=== PATIENT | female | born 1975 | race American Indian/Alaskan Native ===

== ENCOUNTER 2016-06-11 13:13 | Emergency (ER) | payer OTHER ==
[2016-06-11 13:55] VITALS: BP 124/80
--- NOTE | 2016-06-11 14:10 | Emergency Department Report ---
Entered by NAGI BUENO, acting as scribe for HELLEN GOULD NP. Chief Complaint: Extremity Injury, Lower Stated Complaint: LEFT HIP PAIN Time Seen by Provider: 06/11/16 13:53 - HPI History of Present Illness: 40 y/o female presents with 6/10, sharp, left hip pain that started 3 days ago as a result of her bursitis. Pain is aggravated by movement, alleviated by sitting. Pt notes taking ibuprofen with relief. LMP 05/29/16. NAD VSS no focal or neuro deficits ambulatory - ROS Review of Systems: as noted in HPI - Exam Vital Signs: Vital Signs 06/11/16 13:51 Temperature 98 F Pulse Rate 78 Respiratory 20 Rate Blood Pressure 124/80 O2 Sat by Pulse 97 Oximetry Physical Exam: as noted in HPI MSE screening note: Focused history and physical exam performed. Due to findings the following was ordered: ED Disposition for MSE Condition: Stable This documentation as recorded by the scribe,NAGI BUENO,accurately reflects the service I personally performed and the decisions made by me,HELLEN GOULD NP.
--- NOTE | 2016-06-11 17:15 | Emergency Department Report ---
ED Extremity Problem HPI - General Chief complaint: Extremity Injury, Lower Stated complaint: LEFT HIP PAIN Time Seen by Provider: 06/11/16 16:35 Source: patient, family Mode of arrival: Ambulatory Limitations: No Limitations - History of Present Illness MD Complaint: joint paint Location: left, lower extremity History of Same: Yes -: Yes arthralgia, No fever, No associated dyspnea, No associated chest pain Radiation: none Severity scale (0 -10): 6 Quality: aching Consistency: constant Improves with: cold therapy Worsens with: weight bearing, walking Associated Symptoms: denies other symptoms - Related Data Previous Rx's Medication Instructions Recorded Last Taken Type Naproxen [Naprosyn TAB] 500 mg PO BID PRN #12 tablet 06/11/16 Unknown Rx Allergies Allergy/AdvReac Type Severity Reaction Status Date / Time No Known Allergies Allergy Unverified 06/11/16 17:16 ED Review of Systems ROS: Stated complaint: LEFT HIP PAIN Other details as noted in HPI Comment: All other systems reviewed and negative Constitutional: denies: chills, fever ENT: denies: ear pain, throat pain Respiratory: no symptoms reported Cardiovascular: denies: chest pain, palpitations, edema, syncope Gastrointestinal: denies: abdominal pain, nausea, vomiting, diarrhea, constipation Musculoskeletal: arthralgia. denies: back pain, joint swelling, myalgia Skin: denies: rash Neurological: denies: headache, numbness, paresthesias, confusion, abnormal gait , vertigo ED Past Medical Hx - Past Medical History Previous Medical History?: Yes Additional medical history: Bursitis - Surgical History Past Surgical History?: No - Family History Family history: hypertension - Social History Smoking Status: Never Smoker Substance Use Type: None - Medications Home Medications: Home Medications Medication Instructions Recorded Confirmed Last Taken Type Naproxen [Naprosyn TAB] 500 mg PO BID PRN #12 tablet 06/11/16 Unknown Rx ED Physical Exam - General Limitations: No Limitations General appearance: alert, in no apparent distress - Head Head exam: Present: atraumatic, normocephalic, normal inspection - Eye Eye exam: Present: normal appearance, PERRL, EOMI. Absent: periorbital swelling , periorbital tenderness Pupils: Present: normal accommodation - Neck Neck exam: Present: normal inspection, full ROM. Absent: tenderness, lymphadenopathy - Respiratory Respiratory exam: Present: normal lung sounds bilaterally. Absent: respiratory distress, chest wall tenderness - Cardiovascular Cardiovascular Exam: Present: regular rate, normal rhythm, normal heart sounds - GI/Abdominal GI/Abdominal exam: Present: soft, normal bowel sounds. Absent: distended, tenderness, guarding, rebound, rigid - Extremities Exam Extremities exam: Present: normal inspection, normal capillary refill. Absent: full ROM (Limited range of motion to left hip), tenderness, pedal edema, joint swelling, calf tenderness - Expanded Lower Extremity Exam Left Hip exam: Present: normal inspection, pelvic stability. Absent: full ROM ( Limited range of motion to left. She she says she has pain with abduction and abduction.), tenderness, swelling, abrasion, laceration, ecchymosis, deformity, crepidus, dislocation, erythema, external rotation, internal rotation, shortening Upper Leg exam: Present: normal inspection, full ROM. Absent: tenderness, swelling, abrasion, laceration, ecchymosis, deformity, crepidus, dislocation, erythema Knee exam: Present: normal inspection, full ROM, full knee extension. Absent: tenderness, swelling, abrasion, laceration, ecchymosis, deformity, crepidus, dislocation, erythema, effusion, pain w/ pronation/supination Lower Leg exam: Present: normal inspection, full ROM. Absent: tenderness, swelling, abrasion, laceration, ecchymosis, deformity, crepidus, dislocation, erythema, palpable cord, Mike's sign Ankle exam: Present: normal inspection, full ROM. Absent: tenderness, swelling , abrasion, laceration, ecchymosis, deformity, crepidus, dislocation, erythema, anterior draw sign Foot/Toe exam: Present: normal inspection, full ROM. Absent: tenderness, swelling, abrasion, laceration, ecchymosis, deformity, crepidus, dislocation, erythema, amputation, puncture wound, foreign body, calcaneal tenderness, tenderness at base of 5th metatarsal, nail avulsion, subungual hematoma Neuro vascular tendon exam: Present: no vascular compromise. Absent: pulse deficit, abnormal cap refill, motor deficit, sensory deficit, tendon deficit, extremity cold to touch, pallor, abnormal 2-point discrimination, decreased fine /light touch, foot drop, peroneal nerve deficit, significant pain with passive ROM of distal joint Gait: Positive: observed and limited by pain - Back Exam Back exam: Present: normal inspection, full ROM. Absent: tenderness, CVA tenderness (R), CVA tenderness (L), muscle spasm, paraspinal tenderness, vertebral tenderness, rash noted - Neurological Exam Neurological exam: Present: alert, oriented X3, abnormal gait (due to left hip pain. Patient is limping), reflexes normal - Psychiatric Psychiatric exam: Present: normal affect, normal mood - Skin Skin exam: Present: warm, dry, intact, normal color. Absent: rash ED Course Vital Signs 06/11/16 13:51 Temperature 98 F Pulse Rate 78 Respiratory 20 Rate Blood Pressure 124/80 O2 Sat by Pulse 97 Oximetry - Reevaluation(s) Reevaluation #1: 06/11/16 18:27 Patient given dexamethasone 6 mg by mouth and Toradol 60 mg IM and she reports relief of her pain. She is able to ambulate without any limping. ED Medical Decision Making - Medical Decision Making ED course: With diagnosis of arthralgia Left hip with history of bursitis to left hip. He was given Deltasone 60 mg by mouth and Toradol 60 mg IM with relief of pain. She is able to ambulate without limping. Patient discharged home with prescription for naproxen and to follow-up with orthopedic doctor in 2 -3 days. Critical care attestation.: If time is entered above; I have spent that time in minutes in the direct care of this critically ill patient, excluding procedure time. ED Disposition Clinical Impression: History of bursitis, Arthralgia of left hip Disposition: DISCHARGED TO HOME OR SELFCARE Is pt being admited?: No Does the pt Need Aspirin: No Condition: Stable Instructions: Arthralgia (ED), Hip Bursitis (ED) Additional Instructions: Follow-up with orthopedic doctor as recommended. take Naprosyn 2 times a day as needed for pain. Prescriptions: Naproxen [Naprosyn TAB] 500 mg PO BID PRN #12 tablet PRN Reason: Pain Referrals: KATEY BRENNER MD [Staff Physician] - 2-3 Days PRIMARY CAREMD [Primary Care Provider] - 2-3 Days Forms: Work/School Release Form(ED)
[2016-06-11] MEDS ORDERED: DELTASONE PO ONE (17:16)
[2016-06-11] MEDS ORDERED: TORADOL IM ONE (17:16)
== END 2016-06-11 18:39 | disposition home or self-care (01) ==
LOC: ED 13:13
DX: M25.552 Pain in left hip (principal); Z87.828 Personal history of other (healed) physical injury and trauma
CPT/HCPCS: 96372; 99282; J1885; J7512

== ENCOUNTER 2017-02-18 09:42 | Emergency (ER) | payer SELFPAY ==
--- NOTE | 2017-02-18 11:41 | XRay Report ---
ROUTINE CHEST, TWO VIEWS: HISTORY: Cough. The trachea, heart, mediastinal contour, lung nieto and bony thorax are unremarkable. IMPRESSION: Unremarkable chest x-ray.
[2017-02-18] MEDS ORDERED: DUONEB *Not for PRN Use IH ONE (13:29)
--- NOTE | 2017-02-18 13:34 | Emergency Department Report ---
ED ENT HPI - General Chief complaint: Earache Stated complaint: EAR ACHE/COUGHING Time Seen by Provider: 02/18/17 11:20 Source: patient Mode of arrival: Ambulatory Limitations: No Limitations - History of Present Illness Initial comments: This is a 41-year-old female nontoxic, well nourished in appearance, no acute signs of distress presents to the ED with c/o of right earache and discharge and nonproductive cough x3 days. Patient describes ear discharge as clear/ yellow colored. Patient denies any trauma to the region. Patient denies any hearing loss. Patient denies any fever, chills, headache, nausea, vomiting, chest pain, shortness of breathe, stiff neck, numbness, tingling, back pain. Patient denies any allergies or PMH. Patient denies recent travels, long car rides, or recent hospital stays. Patient denies calf pain, calf tenderness, or hemoptysis. MD complaint: ear pain, other (cough) -: days(s) (3) Location: L ear Severity: mild Severity scale (0 -10): 8 Quality: aching Consistency: constant Improves with: none Worsens with: none Associated Symptoms: cough. denies: fever, gum swelling, toothache, pain with swallowing, sore throat, tinnitus, hearing loss, discharge from ear, rhinorrhea - Related Data Previous Rx's Medication Instructions Recorded Last Taken Type Naproxen [Naprosyn TAB] 500 mg PO BID PRN #12 tablet 06/11/16 Unknown Rx Amoxicillin/K Clav Tab [Augmentin 1 tab PO Q12HR #20 tab 02/18/17 Unknown Rx 875 mg] Ciprofloxacin 0.2%(Nf) 4 drops Q8H #1 bottle 02/18/17 Unknown Rx [Ciprofloxacin Otic 0.2%(Nf)] traMADol [Ultram] 50 mg PO Q6HR PRN #12 tablet 02/18/17 Unknown Rx Allergies Allergy/AdvReac Type Severity Reaction Status Date / Time No Known Allergies Allergy Unverified 06/11/16 17:16 ED Dental HPI - General Chief complaint: Earache Stated complaint: EAR ACHE/COUGHING Time Seen by Provider: 02/18/17 11:20 Source: patient Mode of arrival: Ambulatory Limitations: No Limitations - Related Data Previous Rx's Medication Instructions Recorded Last Taken Type Naproxen [Naprosyn TAB] 500 mg PO BID PRN #12 tablet 06/11/16 Unknown Rx Amoxicillin/K Clav Tab [Augmentin 1 tab PO Q12HR #20 tab 02/18/17 Unknown Rx 875 mg] Ciprofloxacin 0.2%(Nf) 4 drops Q8H #1 bottle 02/18/17 Unknown Rx [Ciprofloxacin Otic 0.2%(Nf)] traMADol [Ultram] 50 mg PO Q6HR PRN #12 tablet 02/18/17 Unknown Rx Allergies Allergy/AdvReac Type Severity Reaction Status Date / Time No Known Allergies Allergy Unverified 06/11/16 17:16 ED Review of Systems ROS: Stated complaint: EAR ACHE/COUGHING Other details as noted in HPI Constitutional: denies: chills, fever Eyes: denies: eye pain, eye discharge, vision change ENT: ear pain. denies: throat pain Respiratory: cough. denies: shortness of breath, wheezing Cardiovascular: denies: chest pain, palpitations Endocrine: no symptoms reported Gastrointestinal: denies: abdominal pain, nausea, diarrhea Genitourinary: denies: urgency, dysuria, discharge Musculoskeletal: denies: back pain, joint swelling, arthralgia Skin: denies: rash, lesions Neurological: denies: headache, weakness, paresthesias Psychiatric: denies: anxiety, depression Hematological/Lymphatic: denies: easy bleeding, easy bruising ED Past Medical Hx - Past Medical History Additional medical history: Bursitis - Social History Smoking Status: Never Smoker Substance Use Type: None - Medications Home Medications: Home Medications Medication Instructions Recorded Confirmed Last Taken Type Naproxen [Naprosyn TAB] 500 mg PO BID PRN #12 tablet 06/11/16 Unknown Rx Amoxicillin/K Clav Tab [Augmentin 1 tab PO Q12HR #20 tab 02/18/17 Unknown Rx 875 mg] Ciprofloxacin 0.2%(Nf) 4 drops Q8H #1 bottle 02/18/17 Unknown Rx [Ciprofloxacin Otic 0.2%(Nf)] traMADol [Ultram] 50 mg PO Q6HR PRN #12 tablet 02/18/17 Unknown Rx ED Physical Exam - General Limitations: No Limitations General appearance: alert, in no apparent distress - Head Head exam: Present: atraumatic, normocephalic, normal inspection - Eye Eye exam: Present: normal appearance, PERRL, EOMI. Absent: scleral icterus, conjunctival injection, nystagmus, periorbital swelling, periorbital tenderness Pupils: Present: normal accommodation - ENT ENT exam: Present: normal orophraynx, mucous membranes moist - Expanded ENT Exam Expanded Ear exam: Present: normal external inspection TM/Canal exam: Erythema: Left TM, Bulging: Left TM, Mastoid Tenderness: Left TM , Canal Discharge: Left TM Mouth exam: Present: normal external inspection, tongue normal. Absent: drooling, trismus, muffled voice, tongue elevation, laceration Teeth exam: Present: normal inspection Throat exam: Positive: normal inspection. Negative: tonsillar erythema, tonsillomegaly, tonsillar exudate, R peritonsillar mass, L peritonsillar mass - Neck Neck exam: Present: normal inspection, full ROM. Absent: tenderness, meningismus, lymphadenopathy, thyromegaly - Respiratory Respiratory exam: Present: normal lung sounds bilaterally. Absent: respiratory distress, wheezes, rales, rhonchi, stridor, chest wall tenderness, accessory muscle use, decreased breath sounds, prolonged expiratory - Cardiovascular Cardiovascular Exam: Present: regular rate, normal rhythm, normal heart sounds. Absent: irregular rhythm, systolic murmur, diastolic murmur, rubs, gallop - GI/Abdominal GI/Abdominal exam: Present: soft, normal bowel sounds. Absent: distended, tenderness, guarding, rebound, rigid, diminished bowel sounds - Rectal Rectal exam: Present: deferred - Extremities Exam Extremities exam: Present: normal inspection, full ROM, normal capillary refill. Absent: tenderness, pedal edema, joint swelling, calf tenderness - Back Exam Back exam: Present: normal inspection, full ROM. Absent: tenderness, CVA tenderness (R), CVA tenderness (L), muscle spasm, paraspinal tenderness, vertebral tenderness, rash noted - Neurological Exam Neurological exam: Present: alert, oriented X3, CN II-XII intact, normal gait, reflexes normal - Psychiatric Psychiatric exam: Present: normal affect, normal mood - Skin Skin exam: Present: warm, dry, intact, normal color. Absent: rash - Other Other exam information: Positive tragus pain. ED Course Vital Signs 02/18/17 10:59 Temperature 97.8 F Pulse Rate 91 H Respiratory 16 Rate Blood Pressure 122/72 [Left] O2 Sat by Pulse 99 Oximetry - Reevaluation(s) Reevaluation #1: 02/18/17 13:37 Patient is speaking in full sentences with no signs of distress noted. ED Medical Decision Making - Lab Data Result diagrams: 02/18/17 13:30 02/18/17 13:30 - Medical Decision Making This is a 41-year-old female that presents with otits media, sinusitis and otitis externa. Patient is stable and was examined by me. Patient did have mastoid tenderness so a CT with contrast has been obtained of left ear and dictated by radiologist with fluid in the right mastoid air cells and right middle ear which could represent infection. No fracture or bony destruction. Moderate severe ethmoid and maxillary sinus disease. Patient was notified of CT results with no questions noted. Patient is discharged with augmentin and ciprofloxin. Patient was instructed to Follow-up with a primary care doctor in 3 -5 days or if symptoms worsen and continue return to emergency room as soon as possible. At time time of discharge, the patient does not seem toxic or ill in appearance. No acute signs of distress noted. Patient agrees to discharge treatment plan of care. No further questions noted by the patient. Critical care attestation.: If time is entered above; I have spent that time in minutes in the direct care of this critically ill patient, excluding procedure time. ED Disposition Clinical Impression: Otitis media Qualifiers: Otitis media type: unspecified Laterality: left Qualified Code(s): H66.92 - Otitis media, unspecified, left ear Otitis externa Qualifiers: Otitis externa type: unspecified type Chronicity: acute Laterality: left Qualified Code(s): H60.502 - Unspecified acute noninfective otitis externa, left ear Sinusitis Qualifiers: Sinusitis location: unspecified location Chronicity: acute Recurrence: non- recurrent Qualified Code(s): J01.90 - Acute sinusitis, unspecified Disposition: DC-01 TO HOME OR SELFCARE Is pt being admited?: No Does the pt Need Aspirin: No Condition: Stable Instructions: Amoxicillin/Clavulanate Potassium (By mouth), Ciprofloxacin ( Into the ear), Sinusitis (ED), Otitis Externa (ED), Otitis Media (ED), Tramadol (By mouth) Additional Instructions: Follow-up with a primary care doctor in 3-5 days or if symptoms worsen and continue return to emergency room as soon as possible. Do not operate any machinery while taking Ultram due drowsiness Prescriptions: Amoxicillin/K Clav Tab [Augmentin 875 mg] 1 tab PO Q12HR #20 tab Ciprofloxacin 0.2%(Nf) [Ciprofloxacin Otic 0.2%(Nf)] 4 drops Q8H #1 bottle traMADol [Ultram] 50 mg PO Q6HR PRN #12 tablet PRN Reason: Pain Referrals: [facility] [Outside] - 3-5 Days [facility] [Outside] - 3-5 Days GELA FLOYD MD [Primary Care Provider] - 3-5 Days PRIMARY CARE, [Referring] - 3-5 Days RUEL ZENDEJAS MD [Staff Physician] - 3-5 Days Forms: Work/School Release Form(ED)
[2017-02-18 13:52] LABS: Basophils % (Auto) 0.6 % (0.0-1.8); Eosinophils # (Auto) 0.1 K/mm3 (0.0-0.4); Eosinophils % (Auto) 0.8 % (0.0-4.3); Hematocrit 37.9 % (30.3-42.9); Hemoglobin 12.8 gm/dl (10.1-14.3); Lymphocytes # (Auto) 1.6 K/mm3 (1.2-5.4); Lymphocytes % (Auto) 20.1 % (13.4-35.0); Mean Corpuscular HGB Conc 34 % (30-34); Mean Corpuscular Hemoglobin 30 pg (28-32); Mean Corpuscular Volume 90 fl (79-97); Monocytes # (Auto) 0.7 K/mm3 (0.0-0.8); Monocytes % (Auto) 8.7 % (0.0-7.3); Platelet Count 249 K/mm3 (140-440); Red Blood Count 4.21 M/mm3 (3.65-5.03); Red Cell Distribution Width 14.4 % (13.2-15.2)
[2017-02-18 14:09] LABS: BUN/Creatinine Ratio 8; Blood Urea Nitrogen 4 mg/dL (7-17); Calcium 9.1 mg/dL (8.4-10.2); Hemolysis Index 11
[2017-02-18] MEDS ORDERED: NACL ONE (14:23)
--- NOTE | 2017-02-18 15:29 | Cat Scan Report ---
CT ORBIT/EAR/FOSSA WITH CONTRAST HISTORY: Mastoid tenderness. TECHNIQUE: Helical CT following IV contrast. FINDINGS: The right mastoid air cells are partially opacified with fluid. There is no evidence for fracture or bony destruction. Fluid is also identified within the right middle ear. The left mastoid air cells and left middle ear are unremarkable. There is moderate mucosal thickening and fluid throughout the maxillary and ethmoid sinuses. No sinus wall fracture or facial bone abnormality. Orbital contents are within normal limits. The imaged brain is normal. IMPRESSION: Fluid in the right mastoid air cells and right middle ear which could represent infection. No fracture or bony destruction is appreciated. Moderate to severe ethmoid and maxillary sinus disease. Correlate for acute sinusitis.
[2017-02-18 16:00] VITALS: BP 124/78
== END 2017-02-18 15:59 | disposition home or self-care (01) ==
LOC: ED 09:42
DX: H66.92 Otitis media, unspecified, left ear (principal); H60.502 Unspecified acute noninfective otitis externa, left ear; J01.90 Acute sinusitis, unspecified
CPT/HCPCS: 36415; 70481; 71046; 80048; 84703; 85025; 99284; Q9967